=== PATIENT | male | born 1975 | race Native Hawaiian/Other Pacific Islander ===

== ENCOUNTER 2019-01-16 23:57 | Outpatient (CLI) | payer OTHER | END 2019-01-17 00:10 | disposition short-term general hospital (02) | LOC: AMB 23:57 | DX: H57.13 Ocular pain, bilateral (principal) | CPT/HCPCS: A0425; A0429 ==

== ENCOUNTER 2019-01-17 00:10 | Emergency (ER) | payer OTHER ==
[~2019-01-17] VITALS: Ht 182.9 cm; Wt 90.7 kg
[2019-01-17 01:10] VITALS: BP 151/93; TEMP 98.1
== END 2019-01-17 01:10 | disposition home or self-care (01) ==
LOC: ED 00:13
DX: H16.133 Photokeratitis, bilateral (principal); H10.9 Unspecified conjunctivitis
CPT/HCPCS: 90715; 96372; 99283; J1170; J2405; J7040